=== PATIENT | female | born 1950 | race Native Hawaiian/Other Pacific Islander ===

== ENCOUNTER 2019-01-07 21:43 | Inpatient (IN) | payer MEDICARE ==
[~2019-01-07] VITALS: Ht 160 cm; Wt 39.9 kg
--- NOTE | 2019-01-07 22:00 | NUR ---
Pt. BIB [id number] from [place] for abd. distension x 1 week, pt. missed weekly scheduled paracentesis tx. on Thursday, A/Ox3, abd. s/r/distended,
[2019-01-07] MEDS ORDERED: ONDA4TAB5 PO (22:23)
[2019-01-07] MEDS ORDERED: PANT40TA4 PO (22:23)
[2019-01-07] MEDS ORDERED: BISA10SU12 RC (22:23)
[2019-01-07] MEDS ORDERED: BLOO-140 IN (22:23)
[2019-01-07] MEDS ORDERED: METO-295 PO (22:23)
[2019-01-07] MEDS ORDERED: MULT1TAB73 PO (22:23)
[2019-01-07] MEDS ORDERED: AMYL1CAP56 PO (22:23)
[2019-01-07] MEDS ORDERED: INSU3INS6 SQ (22:23)
[2019-01-07] MEDS ORDERED: CHOL400T28 PO (22:23)
[2019-01-07] MEDS ORDERED: DOCU100T2 PO (22:23)
[2019-01-07] MEDS ORDERED: MIRT15TA7 PO (22:23)
[2019-01-07] MEDS ORDERED: TENO300T9 PO (22:23)
[2019-01-07] MEDS ORDERED: OXYC5TAB3 PO (22:23)
[2019-01-07] MEDS ORDERED: POLY17PO4 PO (22:23)
[2019-01-07] MEDS ORDERED: SENN-168 PO (22:23)
[2019-01-07] MEDS ORDERED: AMIN30LI2 PO (22:23)
[2019-01-07 22:25] LABS: CREATININE 0.8 mg/dL (0.6-1.3); POTASSIUM 4.2 mmol/L (3.5-5.1)
[2019-01-07 22:26] LABS: BASOPHILS % (AUTO) 0.6 % (0.0-2.0); EOSINOPHILS % (AUTO) 0.5 % (0.0-7.0); HEMATOCRIT 36.3 % (31.2-41.9); HEMOGLOBIN 12.4 g/dL (10.9-14.3); LYMPHOCYTES # (AUTO) 0.7 K/uL (20.0-40.0); LYMPHOCYTES % (AUTO) 11.5 % (20.5-51.5); MEAN CORPUSCULAR HEMOGLOBIN 35.2 uug (24.7-32.8); MEAN CORPUSCULAR HGB CONC 34 g/dL (32.3-35.6); MEAN CORPUSCULAR VOLUME 102.9 fL (75.5-95.3); MONOCYTES # (AUTO) 0.5 K/uL (2.0-10.0); MONOCYTES % (AUTO) 7.9 % (0.0-11.0); NEUTROPHILS # (AUTO) 5.1 K/uL (1.8-8.9); NEUTROPHILS % (AUTO) 79.5 % (38.5-71.5); PLATELET COUNT (AUTO) 92 K/uL (179-408); RED BLOOD CELL COUNT(AUTO) 3.53 MIL/uL (3.63-4.92); WHITE BLOOD COUNT (AUTO) 6.5 K/uL (3.8-11.8)
[2019-01-07 22:31] LABS: BILIRUBIN,DIRECT 0.6 mg/dL (0.0-0.2); BILIRUBIN,TOTAL 1.1 mg/dL (0.2-1.0); TOTAL PROTEIN, SERUM 5.3 g/dL (6.4-8.2)
--- NOTE | 2019-01-07 22:32 | NUR ---
Phleb. tech. at bedside for lab draw,
[2019-01-07 22:45] LABS: BAND % (MANUAL) 2 % (0-10); LYMPHOCYTES % (MANUAL) 10 % (20-40); MONOCYTES % (MANUAL) 10 % (2-10); NEUTROPHILS % (MANUAL) 78 % (42-75)
[2019-01-07] MEDS ORDERED: MORPHINE SULFATE 4 MG/1 ML DISP.SYRIN IV ONE (23:15)
[2019-01-07] MEDS ORDERED: MORPHINE SULFATE 4 MG/1 ML DISP.SYRIN ONE (23:21)
--- NOTE | 2019-01-07 23:34 | NUR ---
Paracentesis performed at bedside by Dr. Vidales - specimens collected and sent to lab,
[2019-01-07 23:35] LABS: *BILIRUBIN,URIN 1+ (NEGATIVE); *BLOOD, URINE 2+ (NEGATIVE); *COLOR,URINE AMBER (YELLOW); *KETONES,URINE 1+ (NEGATIVE); *UROBILINOGEN,URINE 0.2 E.U./dl (NORMAL); LEUKOCYTE ESTERASE ,URINE 2+ (NEGATIVE); NITRITE, URINE NEGATIVE (NEGATIVE); UGLUCOSE NEGATIVE (NEGATIVE)
[2019-01-07 23:39] LABS: *CLARITY,URINE HAZY (CLEAR)
[2019-01-07 23:44] LABS: BACTERIA,URINE MODERATE /HPF (NONE SEEN); SQUAMOUS EPITHELIAL CELL,UR FEW /HPF (NONE SEEN); WBC,URINE 20-50 /HPF (0-3)
[2019-01-07 23:45] LABS: MUCUS,URINE MANY /LPF (0-FEW)
[2019-01-08] MEDS ORDERED: MORPHINE SULFATE 4 MG/1 ML DISP.SYRIN IM ONE (00:15)
--- NOTE | 2019-01-08 00:30 | NUR ---
Dr. Vidales at bedside to remove paracentesis needle - 4400cc peritoneal fluid removed,
[2019-01-08] MEDS ORDERED: PIPERACILLIN SODIUM/TAZOBACTAM 3.375 G in IV DEXTROSE 5% 50 ML IV ONE (01:00)
[2019-01-08] MEDS ORDERED: MAGNESIUM HYDROXIDE 30 ML LIQUID UDC PO PRN (01:15)
[2019-01-08] MEDS ORDERED: TEMAZEPAM 15 MG CAPSULE PO PRN (01:15)
[2019-01-08] MEDS ORDERED: ACETAMINOPHEN 325 MG TABLET PO PRN (01:15)
[2019-01-08] MEDS ORDERED: HYDROCODONE/APAP 5-325MG TABLET PO PRN (01:15)
[2019-01-08] MEDS ORDERED: PIPERACILLIN SODIUM/TAZO 3.375 GM VIAL ONE (01:48)
--- NOTE | 2019-01-08 02:03 | NUR ---
Gave report to Epi,
--- NOTE | 2019-01-08 02:48 | NUR ---
Pt. taken off unit via stretcher and admitted to room 215, NAD, VSS
[2019-01-08] MEDS ORDERED: PIPERACILLIN/TAZOBACTAM/D5W 50 ML IV ONE (02:58)
--- NOTE | 2019-01-08 03:00 | NUR ---
Admitted to [facility] floor Dx. UTI, Ascites. S/P Paracentesis procedure in ER. Admission assessment initiated. No sign of distress noted w/ stable vital signs. Alert & oriented, Mandarin speaking but able to speak & understand setswana. Gen weakness noted. Fall precaution observed.
[2019-01-08 05:35] VITALS: BP 132/79
--- NOTE | 2019-01-08 07:15 | NUR ---
Fairly rested, no acute resp distress. Report given to Sidra PIÑA.
[2019-01-08] MEDS ORDERED: PANTOPRAZOLE SODIUM 40 MG VIAL IV SCH (07:30)
[2019-01-08] MEDS: Z GUARD REMEDY PASTE 57 GM TUBE TOP SCH ×2 (09:00→20:09)
[2019-01-08] MEDS: ONDANSETRON 4 MG/2 ML VIAL IV PRN (09:05)
[2019-01-08] MEDS ORDERED: PIPERACILLIN/TAZOBACTAM/D5W 3.375 G in PREMIXED 1 EACH IV SCH (10:00)
[2019-01-08 11:49] VITALS: BP 112/72
[2019-01-08] MEDS: PIPERACILLIN/TAZOBACTAM/D5W 3.375 G in PREMIXED 1 EACH IV SCH ×2 (13:03→20:00)
[2019-01-08 15:20] VITALS: BP 126/86
[2019-01-08] MEDS ORDERED: DEXTROSE 50% 50 ML DISP.SYRIN IV PRN (16:00)
[2019-01-08] MEDS: BLOOD SUGAR DIAGNOSTIC 1 EACH STRIP VI SCH ×2 (17:21→20:23)
[2019-01-08] MEDS: LIPASE/PROTEASE/AMYLASE 4200 UNITS CAPSULE.DR PO SCH (17:24)
[2019-01-08] MEDS: PROTEIN SUPPLEMENT (PROSTAT) 30 ML LIQUID PO SCH (17:25)
[2019-01-08] MEDS: INSULIN REGULAR, HUMAN 300 UNIT/3 ML VIAL SQ PRN ×2 (17:27→20:29)
--- NOTE | 2019-01-08 19:35 | NUR ---
Received patient awake in bed, not in any form of distress. Noted patient has a portacatheter at the right upper arm accessed for antibiotic infusions. Patient is alert and oriented x 4, primarily Mandarin speaking but understands and speaks a little bit of Divehi, she is able to make her needs known. Will monitor for abdominal pain, noted patient had paracentesis this morning. Bed in low position, locked, side rails up x 2, call light within reach. Noise and lights subdued.
--- NOTE | 2019-01-08 20:00 | NUR ---
Patient complaining of abdominal pain, prn pain medication given.
[2019-01-08] MEDS: OXYCODONE HCL 5 MG TABLET PO PRN ×2 (20:06→23:01)
[2019-01-08] MEDS: MIRTAZAPINE 15 MG TABLET PO SCH (20:09)
[2019-01-08] MEDS: SENNOSIDES 1 TABLET PO SCH (20:09)
[2019-01-08 20:23] VITALS: BP 126/86
[2019-01-08] MEDS: INSULIN GLARGINE,HUM 300 UNITS/3 ML CARTRIDGE SQ SCH (20:33)
--- NOTE | 2019-01-08 21:30 | NUR ---
Patient states pain medication that was given is not helping with the pain at all. Notified Dr. Gilliland that the prn medication for pain is not helping relieve the pain and asked for other pain medication we could give the patient.
[2019-01-08] MEDS ORDERED: OXYCODONE HCL 5 MG TABLET PO PRN (23:15)
[2019-01-09] MEDS: PIPERACILLIN/TAZOBACTAM/D5W 3.375 G in PREMIXED 1 EACH IV SCH ×3 (03:06→18:37)
[2019-01-09 05:52] LABS: BASOPHILS % (AUTO) 0.7 % (0.0-2.0); EOSINOPHILS # (AUTO) 0.1 K/uL (0.0-0.7); EOSINOPHILS % (AUTO) 1.1 % (0.0-7.0); HEMATOCRIT 36.4 % (31.2-41.9); HEMOGLOBIN 12.2 g/dL (10.9-14.3); LYMPHOCYTES # (AUTO) 0.6 K/uL (20.0-40.0); LYMPHOCYTES % (AUTO) 11.4 % (20.5-51.5); MEAN CORPUSCULAR HEMOGLOBIN 34.9 uug (24.7-32.8); MEAN CORPUSCULAR HGB CONC 34 g/dL (32.3-35.6); MEAN CORPUSCULAR VOLUME 104.3 fL (75.5-95.3); MONOCYTES # (AUTO) 0.5 K/uL (2.0-10.0); MONOCYTES % (AUTO) 9.8 % (0.0-11.0); NEUTROPHILS # (AUTO) 4.2 K/uL (1.8-8.9); PLATELET COUNT (AUTO) 86 K/uL (179-408); RED BLOOD CELL COUNT(AUTO) 3.49 MIL/uL (3.63-4.92); WHITE BLOOD COUNT (AUTO) 5.4 K/uL (3.8-11.8)
[2019-01-09 05:53] VITALS: BP 119/77
[2019-01-09 06:16] LABS: CREATININE 0.9 mg/dL (0.6-1.3); MAGNESIUM 1.5 mg/dL (1.8-2.4); PHOSPHOROUS 2.2 mg/dL (2.5-4.9); POTASSIUM 4.3 mmol/L (3.5-5.1)
--- NOTE | 2019-01-09 06:30 | NUR ---
Patient slept well throughout the night. Pain was relieved by medication and hot compress. Noted portacatheter at right arm, patent and intact, used for antibiotic infusion. No other complaints made. Attended all needs. Ensured safety and comfort.
[2019-01-09] MEDS: BLOOD SUGAR DIAGNOSTIC 1 EACH STRIP VI SCH ×4 (06:32→21:25)
[2019-01-09 06:49] LABS: BAND % (MANUAL) 2 % (0-10); EOSINOPHILS % (MANUAL) 2 % (0-8); LYMPHOCYTES % (MANUAL) 11 % (20-40); MONOCYTES % (MANUAL) 8 % (2-10); NEUTROPHILS % (MANUAL) 77 % (42-75)
--- NOTE | 2019-01-09 06:59 | NUR ---
Patient has not urinated this shift, bladder scan done with result as 294ml. No bladder distention noted, no bladder pain or discomfort and patient states she still does no feel the urge to urinate, will endorse to morning shift nurse.
[2019-01-09] MEDS: PROTEIN SUPPLEMENT (PROSTAT) 30 ML LIQUID PO SCH ×3 (08:32→18:11)
[2019-01-09] MEDS: LIPASE/PROTEASE/AMYLASE 4200 UNITS CAPSULE.DR PO SCH ×3 (08:33→18:10)
[2019-01-09] MEDS: Z GUARD REMEDY PASTE 57 GM TUBE TOP SCH ×2 (08:35→21:35)
[2019-01-09] MEDS: INSULIN REGULAR, HUMAN 300 UNIT/3 ML VIAL SQ PRN ×3 (08:58→18:18)
[2019-01-09] MEDS ORDERED: MULTIVITAMINS,THERAPEUTIC TABLET PO SCH (09:00)
[2019-01-09] MEDS ORDERED: TENOFOVIR DISOPROXIL FUMARATE 300 MG TABLET PO SCH (09:00)
[2019-01-09] MEDS ORDERED: PANTOPRAZOLE SODIUM 40 MG VIAL IV SCH (09:00)
[2019-01-09] MEDS ORDERED: PANTOPRAZOLE SODIUM 40 MG TABLET.DR PO SCH (09:00)
[2019-01-09] MEDS ORDERED: CEPH-569 PO (11:04)
[2019-01-09 11:41] VITALS: BP 115/85
[2019-01-09] MEDS ORDERED: NEUTRA PHOS PACKET PO ONE (15:15)
[2019-01-09 15:31] VITALS: BP 112/81
[2019-01-09] MEDS: MAGNESIUM SULFATE/D5W 100 ML IV SCH ×2 (16:02→16:39)
[2019-01-09] MEDS: ONDANSETRON 4 MG/2 ML VIAL IV PRN (18:16)
--- NOTE | 2019-01-09 19:20 | NUR ---
Received patient awake in bed, not in any form of distress. Noted patient has a portacatheter at the right upper arm. Patient is alert and oriented x 4, primarily Mandarin speaking but understands and speaks a little bit of Russian, she is able to make her needs known. No complaints at this time. Bed in low position, locked, side rails up x 2, call light within reach. Noted patient to be discharged to [facility] long term facility.
[2019-01-09] MEDS ORDERED: HEPARIN SODIUM,PORCINE/PF 50 UNIT/5 ML SYR IV ONE (20:00)
--- NOTE | 2019-01-09 20:00 | NUR ---
Verified with Dr. Rishabh Gilliland, portacatheter to be flushed with Heparin 500units/5mL IV prior to deaccessing despite platelet being low at 86.
[2019-01-09 20:19] VITALS: BP 119/81
[2019-01-09] MEDS ORDERED: HEPARIN SODIUM,PORCINE 5,000 UNITS/ML VIAL ONE (21:00)
[2019-01-09] MEDS: MIRTAZAPINE 15 MG TABLET PO SCH (21:00)
--- NOTE | 2019-01-09 21:00 | NUR ---
Blood sugar checked and resulted to 242mg/dl, insulin coverage not given since paramedics are here to take patient and the ride will be approximately 1 hour and patient could become hypoglycemic. Called [facility] and spoke with PADILLA Vazquez and endorsed above events. Addendum: 01/09/19 at 2207 by LARA CHEEMA RN Correction: blood sugar was 245mg/dl
[2019-01-09] MEDS ORDERED: HEPARIN SODIUM,PORCINE/PF 100 UNIT/ML, 5ML SYR ONE ×2 (21:03→21:11)
[2019-01-09] MEDS: SENNOSIDES 1 TABLET PO SCH (21:20)
[2019-01-09] MEDS: INSULIN GLARGINE,HUM 300 UNITS/3 ML CARTRIDGE SQ SCH (21:21)
--- NOTE | 2019-01-09 21:30 | NUR ---
Patient discharged, accompanied by paramedics via gurney, patient in stable condition. All paperwork and patient belongings were sent with the patient. Nesha turner aware of the transfer.
== END 2019-01-09 22:12 | DRG 435 ==
LOC: ER 21:48 → MED 01-08 01:50
PROVIDERS: ADMIT Nurse Practitioner Acute Care; ATTEND Nurse Practitioner Acute Care
PROC: 0W9G3ZX Drainage of Peritoneal Cavity, Percutaneous Approach, Diagnostic (ICD-10-PCS; principal; 2019-01-08)
DX: C25.9 Malignant neoplasm of pancreas, unspecified (principal); E43 Unspecified severe protein-calorie malnutrition; R18.0 Malignant ascites; N39.0 Urinary tract infection, site not specified; B19.10 Unspecified viral hepatitis B without hepatic coma; E87.1 Hypo-osmolality and hyponatremia; C78.7 Secondary malignant neoplasm of liver and intrahepatic bile duct; Z68.1 Body mass index [BMI] 19.9 or less, adult; R13.11 Dysphagia, oral phase; E86.0 Dehydration; K21.9 Gastro-esophageal reflux disease without esophagitis; E11.9 Type 2 diabetes mellitus without complications; Z79.4 Long term (current) use of insulin; F32.9 Major depressive disorder, single episode, unspecified; E88.09 Other disorders of plasma-protein metabolism, not elsewhere classified; G89.3 Neoplasm related pain (acute) (chronic); R26.2 Difficulty in walking, not elsewhere classified
CPT/HCPCS: 36415; 83690; 83735; 83986; 84100; 85025; 85730; 87070; 87205; 93005; A4663; C1758; C9113; G0378; J1642; J1644; J1815; J2270; J2405; J2543; J3475; J3490; J7050; J7060